=== PATIENT | male | born 1945 | race Caucasian/White ===

== ENCOUNTER → 2018-11-12 | Outpatient (CLI) | payer OTHER, MEDICARE ==
--- NOTE | 2018-11-12 09:49 | 2DMMODE ---
[facility] [employer] [place] [address] 2 D/M-MODE ECHOCARDIOGRAM Name: IGNACIAPUSHPA MULLER Room #: REG [facility] [id number] ������������� Admission: 11/12/18 ������������� Attend Phys: Giorgi Dawson, Discharge: ��� ������������� ��� Date of : 45 Date of Service: 11/12/18 0949 �� Report #: [id number] �������� ��������������������������������������������[id number] THIS REPORT FOR: //name// APPROVED REPORT Study performed: 11/12/2018 08:58:02 EXAM: Comprehensive 2D, Doppler, and color-flow Echocardiogram Patient Location: Out-Patient Room #: Echo lab 2 Status: routine BSA: 1.99 HR: 66 bpm BP: 138/64 mmHg Rhythm: NSR Other Information Study Quality: Good Indications Diabetes Hypertension/HDD 2D Dimensions RVDd: 29.96 mm IVSd: 13.22 (7-11mm) LVOT Diam: 22.62 (18-24mm) LVDd: 38.84 mm PWd: 14.40 (7-11mm) Ascending Ao: 29.03 (22-36mm) LVDs: 26.38 (25-40mm) Aortic Root: 35.66 mm IVC: 12.00 mm Volumes Left Atrial Volume (Systole) Single Plane 4CH: 33.76 mL Single Plane 2CH: 42.21 mL LA ESV Index: 22.00 mL/m2 Aortic Valve AoV Peak Patrick.: 1.39 m/s AO Peak Gr.: 7.69 mmHg LVOT Max P.32 mmHg LVOT Max V: 1.15 m/s MADYD Vmax: 3.34 cm2 AI Vmax: 3.17 m/s AI [place]: 1.44 m/s2 AI PHT: 637.05 ms [facility] [employer] [place] [place] [address] 2 D/M-MODE ECHOCARDIOGRAM Name: PUSHPA BETH APLINGTON Room #: REG [facility]#: [id number] ������������� Admission: 11/12/18 ������������� Attend Phys: Giorgi Dawson, Discharge: ��� ������������� ��� Date of : 45 Date of Service: 11/12/18 0949 �� Report #: [id number] �������� ��������������������������������������������[id number] Mitral Valve E/A Ratio: 0.9 MV Decel. Time: 302.33 ms MV E Max Patrick.: 0.79 m/s MV A Patrick.: 0.91 m/s MV PHT: 87.67 ms IVRT: 87.66 ms Pulmonary Valve PV Peak Patrick.: 0.92 m/s PV Peak Gr.: 3.45 mmHg Pulmonary Vein P Vein S: 0.50 m/s P Vein A: 0.31 m/s P Vein D: 0.42 m/s P Vein A Dur.: 106.1 msec P Vein S/D Ratio: 1.19 Left Ventricle The left ventricle is normal size. There is normal LV segmental wall motion. Mild concentric left ventricular hypertrophy. The left ventricular systolic function is normal. The left ventricular ejection fraction is within the normal range. LVEF is 60-65%. Grade I - abnormal relaxation pattern. Right Ventricle The right ventricle is normal size. The right ventricular systolic function is normal. Atria The left atrium size is normal. The right atrium size is normal. Aortic Valve The aortic valve is normal in structure. Mild aortic regurgitation. There is no aortic valvular stenosis. Mitral Valve The mitral valve is normal in structure. Mild mitral regurgitation. No evidence of mitral valve stenosis. Tricuspid Valve The tricuspid valve is normal in structure. There is no tricuspid valve regurgitation noted. Pulmonic Valve The pulmonary valve is normal in structure. Trace pulmonic regurgitation. [address] [address] 2 D/M-MODE ECHOCARDIOGRAM Name: PUSHPA BETH APL[place] Room #: REG CL Rivka#: [id number] ������������� Admission: 11/12/18 ������������� Attend Phys: Giorgi Dawson, Discharge: ��� ������������� ��� Date of : 45 Date of Service: 11/12/18 0949 �� Report #: [id number] �������� ��������������������������������������������[id number] [employer]els The aortic root is normal in size. IVC is normal in size and collapses >50% with inspiration. Pericardium There is no pericardial effusion. <Conclusion> The left ventricle is normal size. Mild concentric left ventricular hypertrophy. The left ventricular systolic function is normal. Grade I - abnormal relaxation pattern. The right ventricle is normal size. The left atrium size is normal. The right atrium size is normal. Mild aortic regurgitation. Mild mitral regurgitation. There is no tricuspid valve regurgitation noted. ��������������������������������������������� <ELECTRONICALLY SIGNED> ���������������������������������������� By: Jared Davila MD ��������������������������������������������� 11/[birth year]/1849 8 8 Jared Davila MD /INF
== END ==
LOC: CV 07:30
DX: I08.1 Rheumatic disorders of both mitral and tricuspid valves (principal); I65.23 Occlusion and stenosis of bilateral carotid arteries; I11.9 Hypertensive heart disease without heart failure; E11.9 Type 2 diabetes mellitus without complications; H34.11 Central retinal artery occlusion, right eye

== ENCOUNTER 2019-07-10 15:54 | Inpatient (IN) | payer OTHER, MEDICARE ==
[~2019-07-10] VITALS: Ht 175.3 cm; Wt 83.9 kg
[2019-07-10 16:23] VITALS: BP 105/67
[2019-07-10 16:28] LABS: ABSOLUTE NEUTROPHILS 7.8 thou/uL (1.4-8.2); BASOPHILS 0.3 % (0.0-2.0); EOSINOPHILS 3.6 % (0.0-3.0); HEMATOCRIT 44.4 % (42.0-52.0); HEMOGLOBIN 15.2 gm/dL (14.0-18.0); LYMPHOCYTES 30.6 % (24.0-44.0); MCH 31.5 pg (26.0-34.0); MCHC 34.3 g/dL (28.0-37.0); MCV 92.1 fL (80.0-100.0); MONOCYTES 5.5 % (1.0-8.0); PLATELET COUNT 231 thou/uL (150-400); RBC 4.82 mil/uL (4.50-6.00); RDW 12.9 % (10.5-14.5)
[2019-07-10] MEDS ORDERED: METFORMIN HCL500 M3 PO (16:29)
[2019-07-10] MEDS ORDERED: JARDIANCE25 MG PO (16:29)
[2019-07-10] MEDS ORDERED: AVAPRO 150 MG150 M1 PO (16:29)
[2019-07-10] MEDS ORDERED: LANTUS SOL100 UNIT/1 SUBQ (16:30)
[2019-07-10] MEDS ORDERED: ASA81BEC PO (16:32)
[2019-07-10 16:36] LABS: CREATININE 1.1 mg/dL (0.7-1.3); POTASSIUM 4.2 mmol/L (3.5-5.1)
[2019-07-10 16:42] LABS: ALBUMIN 3.8 g/dL (3.4-5.0); TOTAL BILIRUBIN 0.6 mg/dL (<0.1-1.0); TOTAL PROTEIN 6.7 g/dL (6.4-8.2)
[2019-07-10 18:20] VITALS: BP 140/63
[2019-07-10 18:35] VITALS: BP 139/65
[2019-07-10 18:51] VITALS: BP 145/63
[2019-07-10 23:47] VITALS: BP 131/56
[2019-07-11 00:18] LABS: HEMATOCRIT 38.3 % (42.0-52.0)
[2019-07-11 00:25] LABS: HEMOGLOBIN 13.1 gm/dL (14.0-18.0)
--- NOTE | 2019-07-11 03:13 | NUR ---
Admission history and assessments completed. Careplan initiated. IVFluids infusing. Low fall risk, up to bathroom without difficulty. Vital signs and rhythm stable. No active signs of bleeding. For GI consult today.
[2019-07-11 04:28] VITALS: BP 134/56
[2019-07-11 05:47] LABS: ABSOLUTE NEUTROPHILS 3.3 thou/uL (1.4-8.2); BASOPHILS 0.8 % (0.0-2.0); EOSINOPHILS 5.2 % (0.0-3.0); HEMATOCRIT 37.4 % (42.0-52.0); HEMOGLOBIN 12.7 gm/dL (14.0-18.0); LYMPHOCYTES 34.4 % (24.0-44.0); MCH 31.6 pg (26.0-34.0); MCHC 34.1 g/dL (28.0-37.0); MCV 92.6 fL (80.0-100.0); MONOCYTES 6.7 % (1.0-8.0); PLATELET COUNT 181 thou/uL (150-400); POLYS 52.9 % (36.0-66.0); RBC 4.03 mil/uL (4.50-6.00); RDW 12.6 % (10.5-14.5); WBC 6.3 thou/uL (4.0-11.0)
[2019-07-11 05:53] LABS: CREATININE 0.9 mg/dL (0.7-1.3); POTASSIUM 3.8 mmol/L (3.5-5.1)
[2019-07-11 08:02] VITALS: BP 131/71
[2019-07-11 11:36] VITALS: BP 133/61
--- NOTE | 2019-07-11 15:19 | NUR ---
INITIAL ASSESSMENT: Received consult for discharge planning. ARIAS reviewed chart and spoke with nursing and attending physician. Pt was admitted from home due to lower GI bleed. Pt to have colonoscopy tomorrow. ARIAS met with pt at bedside. Introduced role of SW. Pt is alert/orientated x 4. Pt reports he lives at home with his . Prior to admission, pt was independent with ADLs. No use of DME. No hx of services or post-acute placement. 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 Pt's PCP is Dr. Dawson. Plan is for pt to discharge home when medically stable. No discharge needs identified at this time, but is available to assist should needs arise.
[2019-07-11 15:47] VITALS: BP 144/56
--- NOTE | 2019-07-11 18:43 | NUR ---
PATIENT PROGRESSING HE IS CONSUMMING GO MEDARDO AND MAG CITRATE. INITIALLY STOOL WAS FORM WITH BRIGHT RED BLOOD, NOW PINKISH. BLOOD SUGAR MONITORED AND JUICE GIVEN NEEDED.
[2019-07-11 19:01] VITALS: BP 147/80
[2019-07-12 03:36] VITALS: BP 156/72
[2019-07-12 07:29] LABS: HEMATOCRIT 34.7 % (42.0-52.0); HEMOGLOBIN 11.9 gm/dL (14.0-18.0); MCH 31.4 pg (26.0-34.0); MCHC 34.2 g/dL (28.0-37.0); RBC 3.78 mil/uL (4.50-6.00); RDW 12.8 % (10.5-14.5); WBC 5.1 thou/uL (4.0-11.0)
[2019-07-12 07:32] VITALS: BP 145/66
--- NOTE | 2019-07-12 07:57 | NUR ---
PT OFF UNIT TO GI LAB.
[2019-07-12 09:27] VITALS: BP 145/66
--- NOTE | 2019-07-12 09:29 | NUR ---
GI REPORT COLONOSCOPY NEGATIVE FOPR BLEE. DR SHAHID INSTRUCT TO DISCHARGE PT TO HOME.
--- NOTE | 2019-07-12 12:02 | NUR ---
DISCHARGE NOTE: SW reviewed chart and spoke with nursing. Pt had colonoscopy this morning and discharged home. No discharge needs identified. Case closed.
--- NOTE | 2019-07-14 12:49 | EKG ---
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
--- NOTE | 2019-07-14 18:06 | PATH ---
[facility] [address] [place] [address] PATHOLOGY RPT PROCEDURE Name: PUSHPA BETH Room #: 355-P [facility] IN M.R.#: [id number] Admission: 07/10/19 Date of : 45 Discharge: 07/12/19 Report #: [id number] Path Case #: [id number] [facility] Accession Number: [id number] . 01 Material submitted: . sigmoid colon - POLYP AT SIGMOID COLON . 01 Clinical history: . Rectal bleed . 02 Diagnosis: Polyp, sigmoid colon, endoscopic biopsy: - Hyperplastic polyp. - Negative for dysplasia. (IUV:pit; 07/14/2019) . QTP 07/14/2019 1230 Local . 02 Electronically signed: . Tammy Ervin MD, Pathologist NPI- [id number] . 01 Gross description: . The specimen is received in formalin, labeled "Spickard Sharon, polyp at sigmoid". Received are three segments of pale hanna soft tissue ranging in size from 0.3 to 0.5 cm in maximum dimensions. The specimen is submitted entirely in cassette A1. (CAA; 07/12/2019) QAC/QAC 07/12/2019 1557 Local . 02 Pathologist provided ICD-10: K63.5 . 02 CPT . 975048 Specimen Comment: A courtesy copy of this report has been sent to [phone], [facility]- Specimen Comment: [id number] Specimen Comment: Report sent to / DR SHAHID Performed at: [address], [place], [place] [id number] MD William De Leon MD Phone: [phone] Performed at: [address] [id number] MD Tammy Ervin MD Phone: [phone]
== END 2019-07-12 10:41 | disposition home or self-care (01) | DRG 378 ==
LOC: ER 15:54 → EROBS 17:42 → 3W 17:42
PROVIDERS: Emergency Medicine; Nurse Practitioner; Physician Assistant; ADMIT Family Medicine
PROC: 0DBN8ZX Excision of Sigmoid Colon, Via Natural or Artificial Opening Endoscopic, Diagnostic (ICD-10-PCS; principal; 2019-07-12)
DX: K57.91 Diverticulosis of intestine, part unspecified, without perforation or abscess with bleeding (principal); D62 Acute posthemorrhagic anemia; E11.9 Type 2 diabetes mellitus without complications; K64.8 Other hemorrhoids; K63.5 Polyp of colon; I10 Essential (primary) hypertension; Z88.0 Allergy status to penicillin; Z90.89 Acquired absence of other organs; Z79.82 Long term (current) use of aspirin; Z79.84 Long term (current) use of oral hypoglycemic drugs; Z79.4 Long term (current) use of insulin; Z87.891 Personal history of nicotine dependence; Z80.0 Family history of malignant neoplasm of digestive organs; Z79.899 Other long term (current) drug therapy
CPT/HCPCS: 10879; 62110; 62900

== ENCOUNTER 2021-01-17 05:14 | Inpatient (IN) | payer OTHER, MEDICARE ==
[~2021-01-17] VITALS: Ht 175.3 cm; Wt 84.1 kg
--- NOTE | ~2021-01-17 | HC ---
[facility] [place] [address] CONSULTATION Name: PUSHPA BETH Room #: 216-P ADM IN M.R.#: [id number] Admission: 01/17/21 Attend Phys: Giorgi Dawson MD Discharge: Date of : 45 Report #: [id number] THIS REPORT FOR: cc: Giorgi Dawson MD, Neal A. MD Khosla, Parveen K. MD ~ DOC #: [id number] Sloan Dotson MD DATE OF SERVICE: 01/17/2021 HISTORY OF PRESENT ILLNESS: This is a 75-year-old male patient who was evaluated by me for the symptoms in the left upper extremity, which is about 2-3 days' duration. Sometimes he thinks it maybe longer than that, but to me, he tells me it is 2-3 days' duration. It just became worse today. From the history, it looks like he was not able to do the finer coordination with left upper extremity. He still has gross movement, but finer coordination is not present. REVIEW OF SYSTEMS: According to him is positive for diabetes as well as hypertension. He has never had any stroke-like symptoms before. Otherwise, he says he is pretty healthy. Before I saw this patient, he had a CT head as well as CT angio of head and neck. I reviewed those and it looks like this patient has pretty extensive disease. It looks like atherosclerotic disease, but vasculitis cannot be fully excluded. That was his relevant 14-point review of systems. PAST MEDICAL HISTORY: Negative for any stroke. FAMILY HISTORY: Negative for any early age stroke. SOCIAL HISTORY: This patient smoked a long time ago, but does not smoke now. PHYSICAL EXAMINATION: NEUROLOGIC: He is alert, responsive, able to follow simple and complex commands. His speech looks intact. Cranial nerve examination does look intact. Neuromuscular examination looks symmetrical except in the left arm where he does [id number]-hynr little bit slowly. He does rapid finger tapping somewhat slowly. He does alternate finger tapping somewhat slowly on the left side, still he can do all those. He also looks slightly weak in the left upper extremity. His position sense looks intact. Reflexes appear to be diminished in generalized fashion. Plantar is mute. There is no meningeal sign. CARDIAC: Appear unremarkable. VITAL SIGNS: Blood pressure is 146/72, respirations 15, pulse is 70. LABORATORY DATA: White count is 7.1. [address] [address] CONSULTATION Name: PUSHPA BETH [place] Room #: 216-P [facility] IN [facility].#: [id number] Admission: 01/17/21 Attend Phys: Giorgi Dawson MD Discharge: Date of : 45 Report #: [id number] IMPRESSION AND PLAN: 1. The symptoms are suggestive of stroke and this patient has multifocal disease and that needs to be addressed. He took an aspirin today, so I gave him loading dose of Plavix. Presently, I will suggest leaving him on a combination of aspirin and Plavix. I called Dr. Alcala for vascular surgery consult and he is going to see the patient. I also asked him to see if he can check with neurointerventionalist, Dr. Rhoades to see if we need to do a catheter angiogram in this patient to look for vasculitis and to establish the diagnosis with certainty because some of the pictures does not show nice opacification. He needs an MRI and hopefully he will be able to do it. He wants to proceed with that. That request is in the computer and we will look at the MRI once it is done. I discussed with the emergency room physician and I had a long discussion with the patient and and discussed their options with him. I called Dr. Dawson and discussed the patient with him also. More than 50 minutes of time was spent taking care of this patient today and majority was spent counseling and coordinating. Sloan Dotson MD PK/SAB By: 1322 17 Sloan Dotson MD /nt
[~2021-01-17 05:14] MED LIST: ASA81BEC PO; AVAPRO 150 MG150 M1 PO; JARDIANCE25 MG PO; LANTUS SOL100 UNIT/1 SUBQ; METFORMIN HCL500 M3 PO
[2021-01-17 05:29] VITALS: BP 168/83
[2021-01-17 05:49] LABS: ABSOLUTE NEUTROPHILS 3.9 thou/uL (1.4-8.2); BASOPHILS 0.8 % (0.0-2.0); EOSINOPHILS 7.3 % (0.0-3.0); HEMATOCRIT 47.7 % (42.0-52.0); HEMOGLOBIN 16.6 gm/dL (14.0-18.0); LYMPHOCYTES 29.2 % (24.0-44.0); MCH 31.4 pg (26.0-34.0); MCHC 34.8 g/dL (28.0-37.0); MCV 90.3 fL (80.0-100.0); MONOCYTES 6.9 % (1.0-8.0); PLATELET COUNT 178 thou/uL (150-400); POLYS 55.8 % (36.0-66.0); RBC 5.29 mil/uL (4.50-6.00); RDW 13.3 % (10.5-14.5); WBC 7.1 thou/uL (4.0-11.0)
[2021-01-17 06:01] LABS: ANION GAP 12 mmol/L (7-16); BUN 19 mg/dL (7-18); CALCIUM 8.7 mg/dL (8.5-10.1); CHLORIDE 105 mmol/L (98-107); CO2 25 mmol/L (21-32); CREATININE 1.3 mg/dL (0.7-1.3); GLUCOSE 141 mg/dL (74-106); POTASSIUM 4.1 mmol/L (3.5-5.1); SODIUM 142 mmol/L (136-145)
[2021-01-17 06:06] LABS: INR 1.01
[2021-01-17 06:12] LABS: SGOT 9 U/L (15-37); SGPT 15 U/L (16-63); TOTAL BILIRUBIN 0.6 mg/dL (0.2-1.0); TOTAL PROTEIN 7.3 g/dL (6.4-8.2); TROPONIN-I <0.06 ng/mL (<0.06)
[2021-01-17 06:40] LABS: URINE BILIRUBIN NEGATIVE (Negative); URINE BLOOD TRACE (Negative); URINE CLARITY CLEAR; URINE COLOR YELLOW; URINE GLUCOSE-RANDOM* 3+ (Negative); URINE KETONES NEGATIVE (Negative); URINE LEUKOCYTES-REFLEX NEGATIVE (Negative); URINE PROTEIN (DIPSTICK) NEGATIVE (Negative); URINE SPECIFIC GRAVITY 1.015 (1.005-1.035); URINE UROBILINOGEN 0.2 E.U./dl (0.2-1.0)
[2021-01-17 06:41] LABS: URINE NITRITE-REFLEX POSITIVE (Negative)
--- NOTE | 2021-01-17 07:28 | EKG ---
[place] [address] [facility] 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 : 1945 Requested By: Anirudh Calvillo Order Number: [id number] MD: Colin Mayers Measurements Intervals [place] Rate: 62 P: 3 AK: 224 QRS: -21 QRSD: 99 T: 28 QT: 385 QTc: 391 Interpretive Statements Sinus rhythm Inferior infarct, old Minimal ST elevation, anterior leads Compared to ECG 07/10/2019 16:32:31 ST (T wave) deviation now present Myocardial infarct finding still present Electronically Signed On 01-17-2021 7:28:30 CDT by Colin Mayers [email or web address] <ELECTRONICALLY SIGNED> By: Colin Mayers MD, [facility] 01/17/21 0728 0547 6 Colin Mayers MD, FAC /EPI
[2021-01-17 08:23] LABS: CASTS None Seen /LPF (None Seen); CRYSTALS None Seen /LPF (None Seen); SQUAMOUS None Seen /LPF (0-3); URINE RBC 3-10 Few /HPF (NONE SEEN); URINE WBC-REFLEX 0-5 Rare /HPF (0-5)
[2021-01-17 08:24] LABS: BACTERIA-REFLEX 1-9 Few /HPF (None Seen)
--- NOTE | 2021-01-17 13:23 | NUR ---
donaldo childs [phone]
[2021-01-17 17:05] VITALS: BP 146/72
[2021-01-17 17:10] VITALS: BP 137/105
[2021-01-17 18:04] VITALS: BP 143/77
[2021-01-17] MEDS ORDERED: PROTONIX40 M2 (18:31)
--- NOTE | 2021-01-17 18:39 | NUR ---
PATIENT ARRIVED ON THE FLOOR AROUND 1730. PT ALERT X ORIENTED X 4. ON ROOM AIR. IV RIGHT FOREARM/ SALINE LOCKED. PT SETTLED AND DINNER PROVIDED. IN THE ROOM. FALL EDUCATION GIVEN AND FALL CONTRACT SIGNED. ADMISSION EDU, ADM HISTORY AND ADM ASSESMENTS COMPLETED. FALL PRECAUTION IN PLACE, CALL LIGHT IN REACH. WILL CONTINUE TO MONITOR.
[2021-01-17 20:05] VITALS: BP 123/63
[2021-01-18 00:44] VITALS: BP 136/57
[2021-01-18 04:46] VITALS: BP 138/50
[2021-01-18 07:34] VITALS: BP 145/75
--- NOTE | 2021-01-18 10:56 | NUR ---
ORDERS RECEIVED FOR PT EVAL AND TREAT. Pt PRESENTED W/ L UE WEAKNESS THAT HE REPORTS IS GETTING BETTER. WAS NOT ABLE TO TIE HIS SHOE SKI PATROL W/ L HAND BUT REPORTS HE WAS ABLE TO DO THAT THIS MORNING. LIVES W/ IN HOME W/ 3 FLIGHTS OF STAIRS W/ HR. NO FALLS. NO DIFFICULTY W/ STAIRS. SPEECH INTACT. SLIGHT DECREASED L FINGER COORDINATION BUT R HAND AND BILAT FOOT COORDINATION INTACT. DENIED N/T. HAS BEEN UP AD MICHAEL WHICH WAS CONFIRMED W/ RN. NO MOBILITY DIFFICULTIES REPORTED. Pt DECLINING NEED FOR ACUTE PT AT THIS TIME. ACUTE PT TO SIGN OFF.
[2021-01-18 11:17] VITALS: BP 128/59
--- NOTE | 2021-01-18 12:11 | NUR ---
Case discussed with the care team. R/o CVA with resolving symptoms. Therapy has evaluated the pt and cleared him for dc home to outpt f/u. PCP is Dr. Dawson. No cm interventions indicated at this time. Dc today or tomorrow pending neuro.
[2021-01-18 15:54] VITALS: BP 135/68
--- NOTE | 2021-01-18 18:52 | NUR ---
Assumed pt care at 7am.Pt in bed resting without c/o.Assessment completed.vss. Dr Dawson and Neurology here.Or dianelys noted.Pt left for mri and returned to room.Result still pending.Pt here to visit,updates given. Pt tolerated meds and diet. No verbal c/o. Pt amxious to know the result of mri. Will probably ready by am.No further c/o. Will continue to monitor.
[2021-01-18 20:04] VITALS: BP 132/78
[2021-01-19 00:06] LABS: GLYCOHEMOGLOBIN (HGB A1C) 7.5 % (4.8-5.6)
[2021-01-19 03:00] VITALS: BP 138/66
[2021-01-19 04:35] LABS: CHOLESTEROL 192 mg/dL (<200); HDL CHOLESTEROL 33 mg/dL (>40); LDL CHOLESTEROL 127 mg/dL (<100); TC:HDL 5.8 Ratio (Not establshd); TRIGLYCERIDE 163 mg/dL (<150); VLDL 33 mg/dL (<40)
[2021-01-19 04:38] LABS: SERUM ASSESSMENT Clear
[2021-01-19 07:32] VITALS: BP 118/69
--- NOTE | 2021-01-19 09:16 | HC ---
[place] [address] CONSULTATION Name: PUSHPA BETH Room #: 216-P [facility] IN M.R.#: [id number] Admission: 01/17/21 Attend Phys: Giorgi Dawson MD Discharge: Date of : 45 Report #: [id number] THIS REPORT FOR: cc: Giorgi Dawson MD, Neal A. MD Forman, John M. MD ~ DOC #: [id number] Fili Alcala MD DATE OF SERVICE: 01/18/2021 REFERRING PHYSICIAN: I was asked to see the patient by Dr. Dotson. HISTORY OF PRESENT ILLNESS: The patient is a 75-year-old with new neurologic deficit. The patient was admitted yesterday with a history of left hand weakness, specifically, the patient stated that he was bending over to tie his shoe and his left hand "did not work." The patient states that he had sensation and motion, but the hand was uncoordinated. The patient notes no other focal deficit. The patient had no difficulty speaking. The patient states that the hand problem has resolved. We note that a CTA done yesterday shows a 70% right internal carotid stenosis. The left side has more trivial disease. An MRI of the brain was done today, but the study has not been read yet. PAST MEDICAL HISTORY: The patient is treated for diabetes and hypertension. SOCIAL HISTORY: The patient is a former smoker who smoked plus or minus 3 packs a day for 20 years until quitting 20 or 30 years ago. 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 HOME MEDICATIONS: Includes Jardiance, metformin, irbesartan, insulin, aspirin. The patient states he was taking 3 aspirins per week. ALLERGIES: PENICILLIN CAUSES MILD RASH. REVIEW OF SYSTEMS: GENERAL: Denies fever, chills, weight change. HEENT: Eyes: Wears glasses. Denies vision change. Denies headache, hearing change, sinus problems. RESPIRATORY: Denies shortness of breath, cough. CARDIAC: Denies chest pain, palpitations. GASTROINTESTINAL: Denies nausea, vomiting, diarrhea or blood. GENITOURINARY: Denies urgency, frequency, blood. MUSCULOSKELETAL: Denies bone or joint pain. [address] [address] CONSULTATION Name: PUSHPA BETH [place] Room #: 216-P [facility] IN M.R.#: [id number] Admission: 01/17/21 Attend Phys: Giorgi Dawson MD Discharge: Date of : 45 Report #: [id number] SKIN: Denies rash or infection. NEUROLOGIC: As mentioned in history. HEMATOLOGIC: The patient stated that when he took more than 3 aspirins per day, he noticed bruisability and bleeding into the skin. PHYSICAL EXAMINATION: GENERAL: The patient is a pleasant fellow sitting in the chair. VITAL SIGNS: Blood pressure 128/59, temperature 36.7, heart rate 66, respiratory rate 16. HEENT: No scleral icterus. No arcus. NECK: No mass. I hear no bruit. CHEST: Clear to auscultation. HEART: Rhythm regular, no murmur. ABDOMEN: Soft. EXTREMITIES: No clubbing, cyanosis or edema. VASCULAR: 2+ popliteal pulses bilaterally. SKIN: No rash or infection. NEUROLOGIC: No obvious motor or sensory dysfunction. ASSESSMENT AND PLAN: I reviewed the findings of the CT scan with the patient that it certainly seems like the patient had a transient ischemic attack and the territory of the deficit correlates with the tight carotid stenosis. The MRI is pending. Unless this shows something unusual, I would recommend carotid endarterectomy. Risks and details of this were discussed with the patient; options and alternatives were reviewed. Risks include but are not limited to bleeding, infection, anesthesia risks, and of course stroke and neurologic deficit. The patient understands all of this and agrees with this approach. We will discuss with Dr. Dawson. I have already reviewed the case with Dr. Dotson. The patient is on dual antiplatelet treatment (aspirin and Plavix). We are able to schedule surgery on Thursday if all agree. Thank you for the consult. MD JAILYN Garcia/MARIA DOLORES <ELECTRONICALLY SIGNED> By: Fili Alcala MD 01/19/21 0916 1452 0004 Fili Alcala MD /nt
[2021-01-19 11:17] VITALS: BP 141/71
[2021-01-19 15:41] VITALS: BP 116/69
--- NOTE | 2021-01-19 16:24 | NUR ---
RECEIVED THE PATIENT CONSCIOUS AND ORIENTED.ON ROOM AIR BREATHING SPONTANEOUSLY.NOT IN PAIN OR DISTRESS.AMBULATED IN THE HALLWAY THIS MORNING, NO MORE WEAKNESS ON THE LEFT HAND.ALL NEEDS ATTENDED.
[2021-01-19 20:00] VITALS: BP 130/73
--- NOTE | 2021-01-20 03:09 | NUR ---
Pt been resting in no acute distress.A/ox4.vss.sb w/1deg on monitor.Denies left arm weakness.Up ad lan to bathroom with steady.Assessment completed as documented.Poc is to possible surgical interventions d/t right carotid stenosis on eday.Pt denies nay concerns at this time.
[2021-01-20 04:00] VITALS: BP 126/84
[2021-01-20 07:55] VITALS: BP 139/80
[2021-01-20 11:40] LABS: HEMATOCRIT 48.2 % (42.0-52.0); MCH 31.9 pg (26.0-34.0); MCHC 35.3 g/dL (28.0-37.0); MCV 90.4 fL (80.0-100.0); RBC 5.34 mil/uL (4.50-6.00); RDW 12.9 % (10.5-14.5); WBC 6.6 thou/uL (4.0-11.0)
[2021-01-20 11:54] LABS: CALCIUM 8.8 mg/dL (8.5-10.1); CREATININE 1.1 mg/dL (0.7-1.3); POTASSIUM 4.1 mmol/L (3.5-5.1)
[2021-01-20 12:00] VITALS: BP 105/61
[2021-01-20 14:06] LABS: ANTI-DNA SCREEN 56 IU/mL (0-9); ANTI-RNP <0.2 AI (0.0-0.9)
--- NOTE | 2021-01-20 15:23 | NUR ---
ASSESSMENT CHARTED. PT ALERT AND ORIENTED. VSS. DENIED HAVING PAIN OR DISCOMFORT. AMBULATED NUMEROUS TIMES AROUND THE UNIT. SEEN BY DR. SHAIHD. NO CONCERNS AT THIS TIME. WILL CONTINUE WITH THE PLAN OF CARE.
[2021-01-20 15:30] VITALS: BP 121/74
[2021-01-20 20:15] VITALS: BP 138/60
[2021-01-21 04:45] VITALS: BP 120/50; BP 137/62
--- NOTE | 2021-01-21 04:57 | NUR ---
SLEPT MOST OF SHIFT. UP AD MICHAEL IN ROOM WITHOUT COMPLAINTS PAIN. AWAITING SURGERY POSSIBLY THURSDAY. CONTINUE TO ASSES CLOSELY.
[2021-01-21 08:25] VITALS: BP 149/84
[2021-01-21 09:49] LABS: HEMATOCRIT 49.9 % (42.0-52.0); HEMOGLOBIN 17.1 gm/dL (14.0-18.0); MCH 31.3 pg (26.0-34.0); MCHC 34.3 g/dL (28.0-37.0); MCV 91.3 fL (80.0-100.0); RBC 5.46 mil/uL (4.50-6.00); RDW 13.2 % (10.5-14.5); WBC 6.3 thou/uL (4.0-11.0)
[2021-01-21 09:52] LABS: CALCIUM 8.9 mg/dL (8.5-10.1); CREATININE 1.2 mg/dL (0.7-1.3); POTASSIUM 4.1 mmol/L (3.5-5.1)
[2021-01-21 12:45] VITALS: BP 142/74
[2021-01-21 19:45] VITALS: BP 148/75
--- NOTE | 2021-01-21 19:54 | NUR ---
PT IS AXOX4, PLEASANT. VSS, AFEBRILE, SR 1AVB ON MONITOR. PT UP AD MICHAEL TO TOILET AND WALK HALLS. DR FARIAS CONSULTED, DR SHAHID CONSULTED. PT TO HAVE CAROTID ENDARTERECTOMY 01/22. CONSENT SIGNED IN CHART. PRE OP ORDERS. PT COMMUNICATED UNDERSTANDING. LOW FALL PRECAUTIONS IN PLACE. NO CONCERNS AT THIS TIME.
[2021-01-22] VITALS (32 sets, daily range): BP systolic 104–140; BP diastolic 39–65
--- NOTE | 2021-01-22 05:10 | NUR ---
SLEPT PART OF SHIFT. DENIES COMPLAINTS OF CHEST PAIN, SHORTNESS OF AIR OR DIZZINESS. AM BATH COMPLETED. NPO PAST MIDNIGHT. AWAITING TO GO TO SURGERY. CONTINUE TO ASSES.
--- NOTE | 2021-01-22 06:33 | NUR ---
0630 TO OR PER CART. WEARING GLASSES. 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
--- NOTE | 2021-01-22 12:52 | NUR ---
PT ARRIVED TO THE UNIT VIA ONE RN/TECH ESCORT. AT THE TIME OF ARRIVAL CARDENE NOT BEING INFUSED R/T BP. JAMES DRESSING INTACT WITH RED DRAINAGE, ART LINE DRESSING SATURATED WITH BLOOD, PER CLINICAL ASST PT WAS MOVING AROUND WHICH CAUSED THE DRAINAGE BUT ART LINE ITSELF IS SUTURED IN. PT IS AOX4, MAKING JOKES WITH THE STAFF MEMBERS, ALL SENSATIONS ARE INTACT, SCDs ARE ON, ART LINE WAVEFORM CORRELATING WITH PLETH SBP <130 CONTINUING TO MONITOR, HAS ALL PT'S BELONGINGS.
--- NOTE | 2021-01-22 15:42 | O ---
[facility] [place] [address] OPERATIVE REPORT Name: PUSHPA BETH Room #: 250-P ADM IN M.R.#: [id number] Admission: 01/17/21 Attend Phys: Giorgi Dawson MD Discharge: Date of : 45 Report #: [id number] THIS REPORT FOR: cc: Giorgi Dawson MD, Neal A. MD Forman, John M. MD ~ DOC #: [id number] Fili Alcala MD DATE OF SERVICE: 01/22/2021 PREOPERATIVE DIAGNOSIS: Right carotid artery stenosis. POSTOPERATIVE DIAGNOSIS: Right carotid artery stenosis. OPERATION: Right carotid endarterectomy with patch closure. SURGEON: Dr. Fili Alcala. DIRECTOR COMMERCIAL SALES: CORY Soria. ANESTHESIA: General. INDICATIONS: The patient is a 75-year-old with symptomatic high-grade right carotid artery stenosis. The patient presents with left hand weakness. CT scan showed 70-80% right carotid stenosis, left carotid trivial disease. FINDINGS AND TECHNIQUE: After general anesthesia was established, an oblique right neck incision was made. Common facial vein was divided. Common internal and external carotid arteries were identified and controlled. 10,000 units of heparin were given. Continuous electroencephalographic monitoring was performed during the operation. When the carotid vessels were occluded, no EEG changes were noted. The carotid arteriotomy was made. The endarterectomy was performed without creating a distal flap. Neointima was inspected and all loose debris was removed. Tacking sutures were placed at the transition zone. When the endarterectomy was deemed to be satisfactory, the arteriotomy was closed using a thin walled pericardial patch and running Prolene. Prior to finishing the closure, the carotid vessels were backbled and the artery was flushed with heparinized saline. Flow was established first through the external, then the internal carotid artery. Protamine was given. The wound was irrigated with heparinized saline. The Stryker drain was brought out through the bottom pole of the incision. [facility] [address] [place] [address] OPERATIVE REPORT Name: PUSHPA BETH [place] Room #: 250-[facility] IN .R.#: [id number] Admission: 01/17/21 Attend Phys: Giorgi Dawson MD Discharge: Date of : 45 Report #: [id number] When hemostasis was satisfactory, the wound was closed in layers. The patient was taken to the recovery area in good condition where his neurologic progress was monitored. All counts were reported as correct. Fili Alcala MD JF/[facility] <ELECTRONICALLY SIGNED> By: Fili Alcala MD 01/22/21 1542 0950 0958 Fili Alcala MD /nt
--- NOTE | 2021-01-22 18:39 | NUR ---
PT IS PROGRESSING TOWARDS DISCHARGE, NO ABNORMALITIES OR SX OF TIA NOTED DURING THIS SHIFT, ALL NEURO INTACT, JAMES DRESSING CHANGED BY OLAYINKA RAY, PT SEEN BY /. NO COMPLAINTS OF NECK PAIN, ALL SYSTEMS NORMAL, CARDENE USED INTERMITTENTLY TO MAINTAIN SBP <130 AT TIMES. CONTINUING TO MONITOR
--- NOTE | 2021-01-22 22:16 | NUR ---
ASSUMED CARE AT 1900. WITH OFF-GOING NURSE, OBSERVED R NECK JAMES DRESSING, AND PLACED A SMALL STRIP TO REINFORCE SEAL. HR IN 50'S AND ART LINE PRESSURES 90'S/30'S W/MAPS IN THE 50'S. 2209-CALLED DR. FARIAS REGARDING THESE VS; OBTAINED ORDER FOR LEVOPHED TO KEEP MAP >60. WILL CONTINUE TO MONITOR.
[2021-01-23] VITALS (15 sets, daily range): BP systolic 106–132; BP diastolic 35–57
[2021-01-23 05:34] LABS: HEMATOCRIT 38.5 % (42.0-52.0); MCH 31.6 pg (26.0-34.0); MCV 90.1 fL (80.0-100.0); RBC 4.27 mil/uL (4.50-6.00); RDW 13.2 % (10.5-14.5); WBC 12.4 thou/uL (4.0-11.0)
[2021-01-23 05:43] LABS: CALCIUM 7.9 mg/dL (8.5-10.1); CREATININE 0.9 mg/dL (0.7-1.3); POTASSIUM 3.8 mmol/L (3.5-5.1)
[2021-01-23 05:44] LABS: HEMOGLOBIN 13.5 gm/dL (14.0-18.0)
--- NOTE | 2021-01-23 08:00 | NUR ---
Assess for length of stay. Admit acute ischemic cva, and s/p carotid endarterectomy 01/22. Able to take po diet and eating 100%. Healthy wt status. Low nutrition risk
[2021-01-23] MEDS ORDERED: CLOPIDOGREL75 MG PO (14:07)
--- NOTE | 2021-01-23 15:00 | NUR ---
PATIENT PROGRESSING WELL TOWARDS DISCHARGE. ROBERSON AND ARTERIAL LINE D/C'D THIS AM. PT AMBULATED IN ROOM AND HALLWAY SEVERAL TIMES. HAS BEEN UP IN CHAIR SINCE THIS AM. TOLERATING PO INTAKE WELL. VSS.
--- NOTE | 2021-01-23 16:10 | NUR ---
PATIENT AND EDUCATED ON DISCHARGE INSTRUCTIONS. QUESTIONS ANSWERED AND PT TOLD TO FOLLOW UP WITH DR. SHAHID'S OFFICE FOR FOLLOW UP APPOINTMENT. PT IS AWARE HE IS TO SEE [facility] IN ONE WEEK. PT ASSISTED TO CAR VIA W/C.
--- NOTE | 2021-01-23 16:11 | NUR ---
ALL BELONGINGS SENT WITH PATIENT'S . EXTRA JAMES DRESSING SUPPLIES SENT WITH PATIENT WELL.
== END 2021-01-23 16:00 | disposition home or self-care (01) | DRG 38 ==
LOC: ER 05:14 → EROBS 16:10 → 2N 16:10 → ICU 01-22 10:29
PROVIDERS: Emergency Medicine; Hospitalist; Physician Assistant; Psychiatry & Neurology Neurology; ADMIT Family Medicine; ATTEND Family Medicine
PROC: 03CK0ZZ Extirpation of Matter from Right Internal Carotid Artery, Open Approach (ICD-10-PCS; principal; 2021-01-22)
PROC: 03UK0KZ Supplement Right Internal Carotid Artery with Nonautologous Tissue Substitute, Open Approach (ICD-10-PCS; principal; 2021-01-22)
PROC: 03HY32Z Insertion of Monitoring Device into Upper Artery, Percutaneous Approach (ICD-10-PCS; 2021-01-23)
DX: I63.231 Cerebral infarction due to unspecified occlusion or stenosis of right carotid arteries (principal); G81.94 Hemiplegia, unspecified affecting left nondominant side; G45.8 Other transient cerebral ischemic attacks and related syndromes; E11.9 Type 2 diabetes mellitus without complications; I10 Essential (primary) hypertension; E78.5 Hyperlipidemia, unspecified; R31.9 Hematuria, unspecified; Z20.822 Contact with and (suspected) exposure to COVID-19; Z88.0 Allergy status to penicillin; Z87.891 Personal history of nicotine dependence; Z79.82 Long term (current) use of aspirin; Z79.899 Other long term (current) drug therapy
CPT/HCPCS: 10078; 10081; 47375; 50010; 50101; 50386; 50403; 50455; 51301; 52287; 54118; 56524; 56526; 56528; 56531; 56534; 58585; 58731; 58857; 62110; 62900; 65020; 70005